=== PATIENT | male | born 1955 | race Caucasian/White ===

== ENCOUNTER → 2016-03-10 | Outpatient (CLI) | payer BC ==
[~2016-03-10] MED LIST: ANT25 PO; ATV5 SL; GADAVIST IV PRN
--- NOTE | 2016-03-10 16:08 | DIAGNOSTIC IMAGING REPORT ---
MRI OF THE BRAIN WITHOUT AND WITH IV CONTRAST CLINICAL HISTORY: Sudden onset right-sided hearing loss. Dizziness. Swishing sensation. COMPARISON STUDY: Head CT dated 08/16/2008 TECHNIQUE: MRI of the brain was performed from the vertex to the skull base utilizing various T1 and T2 weighted sequences. Following the IV administration of 8 mL of Gadavist contrast, additional enhanced images were obtained. The patient was imaged under 0.7 Esther open MRI scanner. FINDINGS: Sagittal T1, axial diffusion, proton density and T2 weighted axial, coronal FLAIR, and pre and post axial T1-weighted images were acquired. These were supplemented with post gadolinium coronal T1 weighted images. No intra or extra-axial mass lesions are visualized. Axial diffusion-weighted images reveal no evidence of acute or subacute infarction. There is no evidence of ventricular dilatation. Proton density T2-weighted and FLAIR images reveal no significant intraparenchymal signal abnormalities. There are no abnormal flow voids. There is no evidence of pathologic enhancement. There is a right maxillary sinus retention cyst. There is very subtle increased T1 signal within the right otic labyrinth. This raises the possibility of hemorrhage, although the appearance is nonspecific. IMPRESSION: 1. Subtle increased T1 signal within the right otic labyrinth. This finding although nonspecific raise the possibility of hemorrhage. 2. Right maxillary sinus retention cyst 3. Otherwise unremarkable MRI the brain. No evidence of intracranial mass. No evidence of acute or subacute infarction. Electronically signed by: Nehemiah Metzger M.D. 03/10/2016 4:07 PM Dictated Date/Time: 03/10/2016 3:58 PM
== END | disposition home or self-care (01) ==
LOC: C.OPENMRI 14:23
PROVIDERS: ATTEND Family Medicine
DX: H93.A1 Pulsatile tinnitus, right ear (principal); H11.009 Unspecified pterygium of unspecified eye; H91.21 Sudden idiopathic hearing loss, right ear; J34.1 Cyst and mucocele of nose and nasal sinus

== ENCOUNTER → 2016-03-20 | Outpatient (CLI) | payer BC ==
[~2016-03-20] MED LIST changes: -GADAVIST IV PRN
[2016-03-20 13:24] LABS: HEMATOCRIT 43.7 % (42-52); MEAN CELL VOLUME 91.4 fL (80-100); MEAN CORPUSCULAR HEMOGLOBIN 32.4 pg (25-34); MEAN CORPUSCULAR HGB CONC 35.5 g/dl (32-36); MEAN PLATELET VOLUME 10.2 fL (7.4-10.4); PLATELET COUNT 236 K/uL (130-400); RED BLOOD COUNT 4.78 M/uL (4.7-6.1); WHITE BLOOD COUNT 6.35 K/uL (4.8-10.8)
[2016-03-20 13:44] LABS: BASO % 0.6 %; BASO ABS # 0.04 K/uL (0-0.2); COMPLETE YES; EOS % 1.3 %; LYMPH % 33.4 %; LYMPH ABS # 2.12 K/uL (1.2-3.4); MONO % 11.5 %; NEUT % 47.2 %
[2016-03-20 18:20] LABS: LYME DISEASE AB IGG NEG (NEG); LYME DISEASE AB IGM NEG (NEG)
[2016-03-26 06:50] LABS: ANA TITER 1:40 TITER (<1:40)
== END | disposition home or self-care (01) ==
LOC: C.LABBC 10:53
PROVIDERS: ATTEND Surgery
DX: H91.21 Sudden idiopathic hearing loss, right ear (principal)

== ENCOUNTER 2022-01-21 22:04 | Observation (INO) ==
--- NOTE | 2022-01-21 22:19 | Emergency Department Note ---
History of Present Illness General Chief complaint: Syncope Stated complaint: Syncope, hit head Time Seen by Provider: 01/21/22 22:09 History of Present Illness This 66-year-old presents to the ER complaining of syncope Location: Generalized Quality: Collapsed Severity: Moderate Duration: Tonight Timing: Tonight Context: Patient passed out and was brought in Modifying factors: better with rest; worse with activity Patient states he was downstairs grinding meat for dinner and then went upstairs to wash his hands in order to grasp with seafood for his and collapsed at the sink. No prodromal symptoms. He has had some congestion and cough for the past few days. He drinks 3 alcoholic beverages a day and did this tonight. Patient did hit his head. Patient states he feels fine and has no current medical complaints. He states he is healthy with no active medical problems. Patient denies chest pain, dyspnea, headache, neck pain, back pain, numbness, tingling, localized weakness. Home Medications Medication Instructions Recorded Confirmed Type phenylephrine 5 2 cap PO DIRECTED PRN Cold 01/21/22 01/21/22 History mg-dextromethorphan 10 Symptoms mg-acetaminophen 325 mg capsule ([place] DayQuil Cold and Flu Relief) aspirin 81 mg tablet,delayed 81 mg PO QAM #30 tabs 01/22/22 Rx release dexamethasone 6 mg tablet 6 mg PO DAILY #10 tabs 01/22/22 Rx folic acid 1 mg tablet 1 mg PO QAM #30 tabs 01/22/22 Rx thiamine HCl (vitamin B1) 100 mg 100 mg PO QAM #30 tabs 01/22/22 Rx tablet Allergies Allergy/AdvReac Type Severity Reaction Status Date / Time shellfish derived Allergy Severe SEVERE Verified 01/21/22 22:44 VOMITING Past Med/Surg History Medical History No acute medical problems Surgical History No pertinent past surgical history Social History Smoking Status: Never smoker Tobacco Type: Smokeless Tobacco (Dip or Chew) Second Hand Exposure: No; Hx Alcohol Use: Yes Alcohol type: beer Hx Substance Use: No Preferred Language: Spanish Communication Ability: Effective Improvement Spec Required: No Beliefs That Will Affect Care: None Current Living Situation: Spouse Feels Safe at Home: Yes Assistive Devices: Hearing Aid - Right Review of Systems A total of 10 systems reviewed and were otherwise negative Physical Exam Vital Signs Vital Signs - 24 hr 01/21/22 22:11 01/21/22 22:18 01/21/22 22:18 Temperature 36.9 C Temperature Source Temporal Artery Scan Pulse Rate - Lying Pulse Rate - Sitting Pulse Rate - Standing Pulse Rate 53 L Pulse Rate from SpO2 Sensor Respiratory Rate 18 Respiratory Effort / Characteristics Non-Labored Respiratory Depth Normal Blood Pressure - Lying Blood Pressure - Sitting Blood Pressure- Standing Blood Pressure 151/81 H Blood Pressure Mean 104 Pulse Oximetry 95 95 Oxygen Delivery Method Room Air Room Air Room Air Sepsis Recent Fever Within 48 Hours No Sepsis New/Unexplained Change in Mental Status No Sepsis Action Taken by Nursing No Action Required 01/21/22 22:21 01/21/22 22:41 01/21/22 23:30 Temperature Temperature Source Pulse Rate - Lying 56 L Pulse Rate - Sitting 61 Pulse Rate - Standing 64 Pulse Rate 58 L Pulse Rate from SpO2 Sensor 68 Respiratory Rate 20 Respiratory Effort / Characteristics Respiratory Depth Blood Pressure - Lying 139/73 Blood Pressure - Sitting 151/82 H Blood Pressure- Standing 147/84 H Blood Pressure 143/75 H 131/75 Blood Pressure Mean 97 93 Pulse Oximetry 95 Oxygen Delivery Method Sepsis Recent Fever Within 48 Hours Sepsis New/Unexplained Change in Mental Status Sepsis Action Taken by Nursing 01/21/22 23:30 Temperature Temperature Source Pulse Rate - Lying Pulse Rate - Sitting Pulse Rate - Standing Pulse Rate 58 L Pulse Rate from SpO2 Sensor Respiratory Rate 19 Respiratory Effort / Characteristics Respiratory Depth Blood Pressure - Lying Blood Pressure - Sitting Blood Pressure- Standing Blood Pressure Blood Pressure Mean Pulse Oximetry 96 Oxygen Delivery Method Room Air Sepsis Recent Fever Within 48 Hours Sepsis New/Unexplained Change in Mental Status Sepsis Action Taken by Nursing VITALS: Vitals are noted on the nurse's note and reviewed by myself. Vital signs reviewed. GENERAL: Pleasant gentleman answering questions appropriately and following commands, in no acute distress, nondiaphoretic, well-developed well-nourished. SKIN: The skin was without rashes, erythema, edema, or bruising. There is no tenting of the skin. Capillary reflex less than 2 seconds. HEAD: Normocephalic atraumatic. EARS: External auditory canals clear, tympanic membranes pearly dye without erythema or effusion bilaterally. EYES: Pupils equal round and reactive to light and accommodation. Conjunctivae without injection, sclerae without icterus. Extraocular movements intact. NOSE: Patent, turbinates without inflammation or discharge. No sinus tenderness. MOUTH: Mucous membranes moist. Pharynx without erythema or exudate. Uvula midline. Airway patent. Tongue does not deviate. NECK: Supple without nuchal rigidity. No lymphadenopathy. No thyromegaly. Cervical spine is nontender. No JVD. HEART: Regular rate and rhythm LUNGS: Clear to auscultation bilaterally without wheezes, rales or rhonchi. No retractions or accessory muscle use. ABDOMEN: Positive bowel sounds x 4. Normal tympanic percussion. Soft, nontender, without masses or organomegaly. Stein sign negative. No guarding or rebound tenderness. No CVA tenderness MUSCULOSKELETAL: No muscle atrophy, erythema, or edema noted. NEURO: Patient was alert and oriented to person place and time. Normal sensation to light and sharp touch. Cranial nerves II through XII grossly intact. No pronator drift. Cerebellar exam intact. No focal neurological deficits. Course Administered Medications Discontinued Medications Aspirin (Aspirin 81 Mg Ectab) 81 mg PO QAM [facility] Stop: 02/21/22 08:59 Last Admin: 01/22/22 09:29 Dose: 81 mg Documented By: CARMEN Aspirin (Aspirin 81 Mg Ectab) 81 mg PO ONE STA Stop: 01/22/22 02:32 Last Admin: 01/22/22 02:54 Dose: 81 mg Documented By: CAROL Folic Acid (Folic Acid 1 Mg Tab) 1 mg PO QAM [facility] Stop: 02/21/22 08:59 Last Admin: 01/22/22 09:28 Dose: 1 mg Documented By: CARMEN Heparin Sodium (Porcine) (Heparin Sod 5,000 Unit/0.5 Ml Vial) 5,000 units SQ Q12 [facility] Stop: 02/21/22 08:59 Last Admin: 01/22/22 09:30 Dose: Not Given Documented By: CARMEN Sodium Chloride (Nss) 500 mls @ 999 mls/hr IV .Q31M ALEJANDRA Stop: 01/21/22 23:00 Last Infusion: 01/21/22 23:11 Dose: 0 mls/hr Documented By: Admin: 01/21/22 22:41 Dose: 999 mls/hr Documented By: ESTEFANI Dexamethasone 4 mg/ Syringe 1 mls @ 1 mls/min IV ONE ONE Stop: 01/22/22 07:38 Last Admin: 01/22/22 09:28 Dose: 1 mls/min Documented By: CARMEN Pantoprazole Sodium (Pantoprazole 40 Mg Tab) 40 mg PO NOW STA Stop: 01/22/22 02:10 Last Admin: 01/22/22 02:53 Dose: 40 mg Documented By: CAROL Thiamine HCl (Thiamine Hcl 100 Mg Tab) [facility] [place] [place] Stop: 02/21/22 08:59 Last Admin: 01/22/22 09:28 Dose: 100 mg Documented By: CARMEN Medical Decision Making Medical Records Attestation: I reviewed the patient's medical records. Home Medications Current Medication List: was personally reviewed by me Laboratory Data Attestation: I reviewed the patient's lab results. Result diagrams: 01/21/22 22:00 01/21/22 22:00 Lab Results 01/21/22 01/21/22 01/21/22 Range/Units 22:00 22:00 22:00 WBC 7.70 (4.8-10.8) K/ul RBC 4.86 (4.63-6.08) M/uL Hgb 15.8 (14.0-18.0) g/dl Hct 44.5 (40.1-51.0) % MCV 91.6 (80.0-100.0) fL MCH 32.5 (25.0-34.0) pg MCHC 35.5 (32.0-36.0) g/dL RDW Std Deviation 41.5 (36.4-46.3) fL RDW Coeff of Kirill 12.4 (11.5-14.5) % Plt Count 226 (130-400) K/uL MPV 10.0 (9.4-12.4) fL Immature Gran % (Auto) 0.6 % Neut % (Auto) 61.0 % Lymph % (Auto) 27.4 % Berks % (Auto) 10.0 % Eos % (Auto) 0.6 % Baso % (Auto) 0.4 % Neut # (Auto) 4.69 (1.4-6.5) K/uL Lymph # (Auto) 2.11 (1.2-3.4) K/uL Berks # (Auto) 0.77 (0.24-0.82) K/uL Eos # (Auto) 0.05 (0-0.50) K/uL Baso # (Auto) 0.03 (0-0.2) K/uL Immature Gran # (Auto) 0.05 H (0.00-0.02) K/uL Sodium 139 (136-145) mmol/L Potassium 3.7 (3.5-5.1) mmol/L Chloride 102 (98-107) mmol/L Carbon Dioxide 27 (21-32) mmol/L Anion Gap 10 (3-11) BUN 11 (6-23) mg/dl Creatinine 1.36 (0.6-1.4) mg/dl Est Cr Clr Drug Dosing 55.7 ml/min Est GFR ( Amer) 62.4 ml/min Est GFR (Non-Af Amer) 53.8 ml/min BUN/Creatinine Ratio 8.1 L (10-20) Glucose 93 (70-99(Fasting)) mg/dl Calcium 8.9 (8.5-10.1) mg/dl Magnesium 2.0 (1.7-2.4) mg/dl Total Bilirubin 0.6 (0.2-1.0) mg/dl AST 62 H (13-39) U/L ALT 51 (7-52) U/L Alkaline Phosphatase 67 (34-104) U/L Troponin I High Sens 6.8 (0-20) pg/ml Total Protein 6.8 (6.0-8.3) gm/dl Albumin 3.8 (3.4-5.0) gm/dl Globulin 3.0 (2.5-4.0) gm/dl Albumin/Globulin Ratio 1.3 (0.9-2) TSH 3.890 (0.300-4.500) uIu/ml Urine Color Urine Appearance (Clear) Urine pH (4.5-7.5) Ur Specific Statham (1.000-1.030) Urine Protein (Negative) Urine Glucose (UA) (Negative) Urine Ketones (Negative) Urine Blood (Negative) Urine Nitrite (Negative) Urine Bilirubin (Negative) Urine Urobilinogen (Negative) Ur Leukocyte Esterase (Negative) Urine WBC (Auto) (0-5) /hpf Urine RBC (Auto) (0-4) /hpf U Hyaline Cast (Auto) (0-5) /lpf U Epithel Cells (Auto) (0-5) /lpf Urine Bacteria (Auto) (Negative) Ethyl Alcohol mg/dL (<10.0) mg/dl SARS-CoV-2 (PCR) (Negative) Influenza Type A (PCR) (Neg) Influenza Type B (PCR) (Neg) RSV (RT-PCR) (Neg) 01/21/22 01/21/22 01/21/22 Range/Units 22:20 22:55 23:40 WBC (4.8-10.8) K/ul RBC (4.63-6.08) M/uL Hgb (14.0-18.0) g/dl Hct (40.1-51.0) % MCV (80.0-100.0) fL MCH (25.0-34.0) pg MCHC (32.0-36.0) g/dL RDW Std Deviation (36.4-46.3) fL RDW Coeff of Kirill (11.5-14.5) % Plt Count (130-400) K/uL MPV (9.4-12.4) fL Immature Gran % (Auto) % Neut % (Auto) % Lymph % (Auto) % Berks % (Auto) % Eos % (Auto) % Baso % (Auto) % Neut # (Auto) (1.4-6.5) K/uL Lymph # (Auto) (1.2-3.4) K/uL Berks # (Auto) (0.24-0.82) K/uL Eos # (Auto) (0-0.50) K/uL Baso # (Auto) (0-0.2) K/uL Immature Gran # (Auto) (0.00-0.02) K/uL Sodium (136-145) mmol/L Potassium (3.5-5.1) mmol/L Chloride (98-107) mmol/L Carbon Dioxide (21-32) mmol/L Anion Gap (3-11) BUN (6-23) mg/dl Creatinine (0.6-1.4) mg/dl Est Cr Clr Drug Dosing ml/min Est GFR ( Amer) ml/min Est GFR (Non-Af Amer) ml/min BUN/Creatinine Ratio (10-20) Glucose (70-99(Fasting)) mg/dl Calcium (8.5-10.1) mg/dl Magnesium (1.7-2.4) mg/dl Total Bilirubin (0.2-1.0) mg/dl AST (13-39) U/L ALT (7-52) U/L Alkaline Phosphatase (34-104) U/L Troponin I High Sens (0-20) pg/ml Total Protein (6.0-8.3) gm/dl Albumin (3.4-5.0) gm/dl Globulin (2.5-4.0) gm/dl Albumin/Globulin Ratio (0.9-2) TSH (0.300-4.500) uIu/ml Urine Color Yellow Urine Appearance Clear (Clear) Urine pH 5.5 (4.5-7.5) Ur Specific Statham 1.006 (1.000-1.030) Urine Protein 3+ H (Negative) Urine Glucose (UA) Negative (Negative) Urine Ketones Negative (Negative) Urine Blood 1+ H (Negative) Urine Nitrite Negative (Negative) Urine Bilirubin Negative (Negative) Urine Urobilinogen Negative (Negative) Ur Leukocyte Esterase Negative (Negative) Urine WBC (Auto) 1-5 (0-5) /hpf Urine RBC (Auto) 0-4 (0-4) /hpf U Hyaline Cast (Auto) 1-5 (0-5) /lpf U Epithel Cells (Auto) 5-10 H (0-5) /lpf Urine Bacteria (Auto) Negative (Negative) Ethyl Alcohol mg/dL 96.7 H (<10.0) mg/dl SARS-CoV-2 (PCR) POSITIVE A* (Negative) Influenza Type A (PCR) Negative (Neg) Influenza Type B (PCR) Negative (Neg) RSV (RT-PCR) Negative (Neg) Imaging Data Attestation: I personally reviewed and interpreted this imaging study as follows: MDM Narrative Prior records/ancillary studies reviewed. Triage Nursing notes reviewed. Additional history obtained from family. The patient's history was concerning for syncope. Differential diagnosis: Etiologies such as vasovagal event, infection, hypoglycemia, electrolyte abnormalities, cardiac sources, intracerebral event, toxicologic, neurologic, as well as others were entertained. Physical examination: As above ER treatment provided: IV hydration with normal saline On reassessment the patient felt better. An order was placed for continuous cardiac monitoring. The monitor shows a rate of 40-100 with a sinus rhythm. Diagnostics interpretation by me: ECG: Ordered for syncope EKG: Normal sinus, normal intervals, no acute ST-T wave changes. Impression sinus bradycardia of 53 interpreted by myself I think arrhythmia is unlikely. EKG shows normal sinus rhythm with no interval abnormalities such as QT prolongation or WPW. There are no findings to suggest Brugada syndrome. Cardiac monitoring in the emergency department reveals no tachycardic or bradycardic dysrhythmia. Hypertrophic cardiomyopathy was considered but there are no clear historical elements pointing toward this. EKG is not suggestive. The QRS voltage is not extremely large and there are no suggestive Q waves. The labs revealed no worrisome leukocytosis, negative troponin. Euthyroid Imaging studies: CT C SPINE: No evidence of acute cervical spine pathology. Advanced disc degeneration at C5- 6 and C6-7. Moderate spinal canal stenosis at C5-6 with AP diameter measuring 8. 8 mm. Minimal calcified atherosclerotic disease of the carotid bifurcations. Bilateral thyroid nodules. No comparisons. Radiologist: Bisi Larry MD CT HEAD: No evidence of acute intracranial pathology. Comparison made to prior brain MRI from March 10, 2016. Retention cyst in the right maxillary sinus. Radiologist: Bisi Larry MD Chest x-ray with no acute consolidation, pneumothorax or free air per my interpretation. Consultation: A consultation was placed with the hospitalist. The case was discussed and diagnostics were reviewed. The patient was evaluated in the ER for further treatment. This appears to be consistent with syncope w/ covid. Patient had no prodromal symptoms prior to the episode. He was slightly bradycardic in the ER. He states this is not new for him. Medicine was consulted. He will be evaluated for admission. Head CT was negative for acute findings. By the evaluation outlined above emergent etiologies such as hypoglycemia, electrolyte abnormalities, intracerebral event, neurologic,as well as others were deemed relatively unlikely. The pt informed about the findings as listed above. All questions were answered and pleased with the treatment. The chart was completed utilizing [employer] recognition software. Grammatical errors, random word insertions, pronoun errors, and incomplete sentences are an occassional consequence of this system due to software whiting itations, ambient noise, and hardware issues. Any formal questions or concerns about the content, text, or information contained within the body of this dictation should be directly addressed to the physician butcher assistant for clarification. Impression & Plan Syncope, COVID-19 Discharge Plan Visit Data Chief Complaint: Syncope Stated Complaint: Syncope, hit head ED Provider: Melchor Price ED Midlevel Provider: Kayleigh Anaya Discharge Problem: Syncope, COVID-19 Patient Disposition: Admitted As Inpatient Condition: Good Discharge Instructions Interventions: ED Discharge Assessment Last Done: 01/22/22 01:33 : Syncope Qualifiers: Syncope type: unspecified Qualified Code(s): R55 - Syncope and collapse
[2022-01-21 22:26] LABS: Basophils # (auto) 0.03 K/uL (0-0.2); Basophils % (auto) 0.4 %; Eosinophils # (auto) 0.05 K/uL (0-0.50); Eosinophils % (auto) 0.6 %; Hematocrit (blood only) 44.5 % (40.1-51.0); Hemoglobin 15.8 g/dl (14.0-18.0); Immature Granulocytes # (auto) 0.05 K/uL (0.00-0.02); Immature Granulocytes % (auto) 0.6 %; Lymphocytes # (auto) 2.11 K/uL (1.2-3.4); Lymphocytes % (auto) 27.4 %; Mean Corpuscular Hemoglobin 32.5 pg (25.0-34.0); Mean Corpuscular Hgb Conc 35.5 g/dL (32.0-36.0); Mean Corpuscular Volume 91.6 fL (80.0-100.0); Monocytes # (auto) 0.77 K/uL (0.24-0.82); Neutrophils # (auto) 4.69 K/uL (1.4-6.5); Platelet Count 226 K/uL (130-400); RDW Coefficient of Variation 12.4 % (11.5-14.5); RDW Standard Deviation 41.5 fL (36.4-46.3); Red Blood Count 4.86 M/uL (4.63-6.08)
[2022-01-21] MEDS ORDERED: SODIUM CHLORIDE 0.9% 500 ML IV SCH (22:30)
[2022-01-21 22:50] LABS: Albumin Globulin Ratio 1.3 (0.9-2); Albumin Level 3.8 gm/dl (3.4-5.0); BUN Creatinine Ratio 8.1 (10-20); Bilirubin,Total 0.6 mg/dl (0.2-1.0); Calcium 8.9 mg/dl (8.5-10.1); Creatinine Clr Calc Pharmacy 55.7 ml/min; Est GFR (African American) 62.4 ml/min; Est GFR (Non-African American) 53.8 ml/min; Potassium 3.7 mmol/L (3.5-5.1); Total Protein 6.8 gm/dl (6.0-8.3)
[2022-01-21 22:52] LABS: Troponin I High Sensitivity 6.8 pg/ml (0-20)
[2022-01-21 23:09] LABS: Influenza A virus by PCR Negative (Neg); Influenza B virus by PCR Negative (Neg); RSV by PCR Negative (Neg)
[2022-01-21 23:43] LABS: SARS CoV2 RNA(COVID-19) Ceph POSITIVE (Negative)
[2022-01-22 00:02] LABS: Appearance Urine Clear (Clear); Bacteria Urine Automated Negative (Negative); Bilirubin Urine Negative (Negative); Blood Urine 1+ (Negative); Color Urine Yellow; Glucose Urine UA Negative (Negative); Ketones Urine Negative (Negative); Leukocyte Esterase Urine Negative (Negative); Nitrite Urine Negative (Negative); Protein Urine 3+ (Negative); RBC Urine Automated 0-4 /hpf (0-4); Specific Gravity Urine 1.006 (1.000-1.030); Urobilinogen Urine Negative (Negative); pH Urine 5.5 (4.5-7.5)
--- NOTE | 2022-01-22 02:01 | History & Physical Report ---
Date of Service January 22, 2022 Assessment & Plan (1) Syncope: Plan: pt presents with syncopal episode no evidence of ischemia in ED continue telemetry monitoring monitor oxygen saturation monitor serial troponin check transthoracic echo to assess EF (2) COVID-19: Plan: pt tests positive for covid19 infection in ED not hypoxic in ED - continue oxygen supplementation no need for remdesivir at this time IV decadron and close pulseoxietry monitoring (3) Elevated ETOH level: Plan: pt admits to consuming 3 etoh drins yesterday monitor for signs of etoh withdrawal will place pt on ciwa protocol CT head negative for intracranial bleed transaminase slightly elevated (4) Elevated liver transaminase level: Plan: mild elevation of transaminases likely sec to etoh use monitor trend History of Present Illness Chief Complaint: pt presents with syncopal episode Primary Care Provider: Genevieve Nogueira DO This is a 66 yr old male who presents to Ed with c/o having had a syncopal epsiode. Pt reports that he felt slightly tires with cough and nasal congestion over the past two days. pt had consumed about 3 drinks this am and then pt was grinding meat in the basement area and subsequently pt had walked over the stairs to get some seafood and while he was attempting to open a faucet pt felt dizzy and passed out. Pt was present during the episode and denies any seizure type activity . pt denies any prodromal symptoms. pt has no chest pain or sob reported . no nausea or vomitting reported . no urinary or bowel incontinence reported. There was a concern of pt hitting his head and pt was brought in to ED and a CT of head was obtained that did not reveal any intracranial bleed or masses pt was evaluted in ED and found to be positive for covid 19 infection and his ETOH level was elevated at about 95 . otherwise pts EKG was non ichchemic and cardiac enzymes not elevated in the ED Allergies Allergy/AdvReac Type Severity Reaction Status Date / Time shellfish derived Allergy Severe SEVERE Verified 01/21/22 22:44 VOMITING Home Medications Medication Instructions Recorded Confirmed Type phenylephrine 5 2 cap PO DIRECTED PRN Cold 01/21/22 01/21/22 History mg-dextromethorphan 10 Symptoms mg-acetaminophen 325 mg capsule ([place] DayQuil Cold and Flu Relief) Past Med/Surg History Medical History No acute medical problems Surgical History No pertinent past surgical history Social History Smoking Status: Never smoker Tobacco Type: Smokeless Tobacco (Dip or Chew) Second Hand Exposure: No; Do You Dip or Chew Tobacco: Yes; Tobacco Cessation Education Requested by Patient: No Hx Alcohol Use: Yes Alcohol type: beer Hx Substance Use: No Preferred Language: Turkmen Communication Ability: Effective Hatchery Worker Required: No Beliefs That Will Affect Care: None Current Living Situation: Spouse Other Information That Helps Us Care for You: No Feels Safe at Home: Yes Safety Concerns: Feels Safe At This Time Assistive Devices: Hearing Aid - Right Review of Systems Constitutional: + fatigue; no fever and no weakness Eyes: no diplopia and no loss of peripheral vision Respiratory: + cough; no pain on inspiration and no wheezing Cardiovascular: + syncope; no chest pain, no chest pain with activity and no palpitations Gastrointestinal: no nausea, no vomiting and no diarrhea/loose stools Genitourinary: no hematuria Integumentary: no rash Neurologic: + syncope; no seizure-like activity and no abnormal speech Endocrine: + fatigue; no polydipsia and no polyuria Physical Exam Constitutional: WD/WN, vitals as above Eyes: PERRL, conjunctivae normal, anicteric sclerae Neck: trachea midline, no thyromegaly Respiratory: normal respiratory effort, lungs clear to auscultation Cardiovascular: RRR, no murmur, no edema Gastrointestinal (Abdomen): normal bowel sounds, soft, nontender, no hepatosplenomegaly Musculoskeletal: no cyanosis or clubbing, extremities motor strength 5/5 Neurologic: PERRL, EOMI, accommodation nl, no face palsy, no dysarthria Results & Data Results & Data ([facility]) Vital Signs (Past 12 Hours) Vital Signs Temp Pulse Resp BP Pulse Ox O2 Del Method 01/22/22 01:00 58 L 18 130/73 95 01/22/22 00:30 62 18 126/71 94 01/22/22 00:00 58 L 17 122/72 95 01/21/22 23:30 58 L 19 96 Room Air 01/21/22 23:30 131/75 01/21/22 22:41 58 L 20 143/75 H 95 01/21/22 22:18 95 Room Air 01/21/22 22:18 Room Air 01/21/22 22:11 36.9 C 53 L 18 151/81 H 95 Room Air Code Status & VTE Plan VTE Prophylaxis Plan VTE Prophylaxis will be ordered: Yes PG Care Time/CCT Total # of Minutes Spent Total Time Spent with Patient: Total time spent is greater than 50% in coordination of care (as documented) at patient's floor/unit and/or counseling patient: Coding Level of Care Code INT OBSERVATION CARE 50M LVL 2 Diagnoses Syncope R55 Syncope type: unspecified COVID-19 U07.1 Elevated ETOH level R78.0 Elevated liver transaminase level R74.01 Time Spent (min) 45 Review of System Constitutional: + fatigue; no fever and no weakness Eyes: no diplopia and no loss of peripheral vision Respiratory: + cough; no pain on inspiration and no wheezing Cardiovascular: + syncope; no chest pain, no chest pain with activity and no palpitations Gastrointestinal: no nausea, no vomiting and no diarrhea/loose stools Genitourinary (Male): no hematuria Integumentary: no rash Neurologic: + syncope; no seizure-like activity and no abnormal speech Endocrine: + fatigue; no polydipsia and no polyuria (1) Syncope Syncope type: unspecified Qualified Code(s): R55 - Syncope and collapse
[2022-01-22] MEDS ORDERED: PANTOprazole 40 MG TAB PO STA (02:09)
[2022-01-22] MEDS ORDERED: ASPIRIN 81 MG ECTAB PO STA (02:31)
--- NOTE | 2022-01-22 06:45 | XRay Report ---
XR chest 1V portable HISTORY: 66 years-old Male cough acute cough COMPARISON: None TECHNIQUE: AP view of the chest FINDINGS: Cardiomediastinal and hilar silhouettes are within normal limits. No pneumothorax, pleural effusion, airspace consolidation or overt pulmonary edema. Degenerative changes of the shoulders and spine. IMPRESSION: No acute process. ACT 112: Negative or not required by law. The above report was generated using voice recognition software. It may contain grammatical, syntax o r spelling errors. Electronically signed by: Rd Ashley M.D. 01/22/2022 6:43 AM
--- NOTE | 2022-01-22 06:54 | CT Scan Report ---
CT head/brain wo con CLINICAL HISTORY: 66 years-old Male with syncope. Acute syncope TECHNIQUE: Multiple axial CT images of the head were obtained without contrast. A dose lowering tech nique was utilized adhering to the principles of ALARA. CT DOSE: 977.13 mGy.cm COMPARISON: 08/16/2008. FINDINGS: No acute intracranial hemorrhage, midline shift, intracranial mass, hydrocephalus, territorial ischem ia or abnormal extra-axial collection. Mild involutional changes. The calvarium is intact. Mastoid air cells are clear. Small right maxillary sinus air-fluid level. U nremarkable soft tissues. Subcentimeter calcifications are noted involving the superior aspect of the bilateral globes. IMPRESSION: No acute intracranial abnormality. ACT 112: Negative or not required by law. The above report was generated using voice recognition software. It may contain grammatical, syntax o r spelling errors. Electronically signed by: Rd Ashley M.D. 01/22/2022 6:52 AM
--- NOTE | 2022-01-22 07:11 | CT Scan Report ---
CT cervical spine wo con CLINICAL HISTORY: 66 years-old Male with fall, head injury. Acute head and neck injury status post f all COMPARISON: CT head of same day TECHNIQUE: Multiple axial CT images of the cervical spine were obtained without contrast. A dose low ering technique was utilized adhering to the principles of ALARA. FINDINGS: Multilevel degenerative changes include severe C5-C6 and C6 or C7 intervertebral disc space narrowing with spondylitic spurring and posterior disc osteophyte complex formations also noted at t hese levels. There is moderate multilevel facet arthrosis. Minimal superior endplate compression of t he T1 and T2 vertebral bodies of less than 20% without acute fracture line or retropulsion. No acute cervical spine fracture or subluxation. Multilevel neuroforaminal narrowing of the cervical spine. The cervical soft tissues appear unremarkable. Mild mucosal thickening with air-fluid level and aeros olized secretions of the right maxillary sinus. The visualized lung apices appear clear. IMPRESSION: 1. No acute cervical spine fracture or subluxation. 2. Minimal superior endplate compression of the T1 and T2 vertebral bodies bodies are technically age -indeterminate however favored to be chronic. 3. Degenerative changes of the cervical spine as above. ACT 112: Negative or not required by law. The above report was generated using voice recognition software. It may contain grammatical, syntax o r spelling errors. Electronically signed by: Rd Ashley M.D. 01/22/2022 7:09 AM
[2022-01-22] MEDS ORDERED: Ativan PO Alcohol Withdrawal--Active Protocol PO PRN (07:34)
[2022-01-22] MEDS ORDERED: LORazepam 1 MG TAB PO PRN (07:34)
[2022-01-22] MEDS ORDERED: dexAMETHasone 4 MG in SYRINGE 0 ML IV ONE (07:37)
--- NOTE | 2022-01-22 08:24 | XCELERA ---
[id number]
[2022-01-22] MEDS ORDERED: ASPIRIN 81 MG ECTAB PO SCH (09:00)
[2022-01-22] MEDS ORDERED: THIAMINE HCL 100 MG TAB PO SCH (09:00)
[2022-01-22] MEDS ORDERED: HEPARIN SOD 5,000 UNIT/0.5 ML VIAL SQ SCH (09:00)
[2022-01-22] MEDS ORDERED: FOLIC ACID 1 MG TAB PO SCH (09:00)
--- NOTE | 2022-01-22 09:16 | Electrocardiogram Report ---
Test Reason : Blood Pressure : / mmHG Vent. Rate : 053 BPM Atrial Rate : 053 BPM P-R Int : 166 ms QRS Dur : 102 ms QT Int : 436 ms P-R-T Axes : -13 -29 049 degrees QTc Int : 409 ms Poor data quality, interpretation may be adversely affected Sinus bradycardia Otherwise normal ECG When compared with ECG of 16-AUG-2008 07:11, T wave inversion no longer evident in Inferior leads Confirmed by Jack Albright ([id number]) on 01/22/2022 9:16:14 AM Referred By: REFERRED SELF Confirmed By:Jack Albright
--- NOTE | 2022-01-22 12:10 | Cardiology Consultation ---
Date of Consultation January 22, 2022 Assessment & Plan (1) Vasovagal syncope: (2) COVID-19: (3) Elevated ETOH level: Plan Generally healthy 66-year-old man with single episode of syncope without preceding or subsequent symptoms. Context strongly suggestive of vasovagal syncope given mild case of COVID, alcohol intake, unpleasant stimuli (cold hands & working with deer viscera), tunnel vision prodrome, and no evidence of trauma. ECG and cardiac enzymes not suggestive of ischemia. Telemetry without any dysrhythmias. Trivial aortic insufficiency but normal aortic diameter and no chest pain, dissection unlikely. Explained pathophysiology of vasovagal syncope, he will monitor for any further events and take syncope avoiding measures (sit or lie down) if they recur. If he does have recurrent syncope without vasovagal contacts, would consider further work-up (including loop recorder). No further cardiac work-up necessary at this time, okay for discharge from my standpoint. No cardiology follow-up necessary in the absence of further symptoms. History of Present Illness Reason for Consultation: Syncope Requesting Physician: Dain Mccoy Attending Physician: Dain Mccoy History of Present Illness 66-year-old generally healthy man with no cardiac history who was admitted for a first episode of unexplained syncope yesterday. At baseline, he is physically active and able to push a lawnmower without dyspnea or chest discomfort, no cardiopulmonary complaints whatsoever. 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 While standing near the sink he noted onset of tunnel vision and dropped to the floor and lost consciousness. This was witnessed by his , who felt that he was out for "about a minute" and awoke him by pushing on his chest attempting CPR. Upon awakening, he had complete recollection of events and noted no confusion, incontinence, chest discomfort, or any other complaints. He denied any trauma. He has felt well since the event and denies any cardiopulmonary or somatic complaints. He notes that he had a full dinner and 3 beers, which is not unusual for him. He has had congestive symptoms with rhinorrhea and a minimal cough for a couple days, he did test positive for COVID upon admission. Telemetry overnight showed sinus rhythm in the 60 bpm range with occasional PACs. At the time of my evaluation this morning, the patient had no somatic complaints. Allergies Allergy/AdvReac Type Severity Reaction Status Date / Time shellfish derived Allergy Severe SEVERE Verified 01/21/22 22:44 VOMITING Home Medications Medication Instructions Recorded Confirmed Type phenylephrine 5 2 cap PO DIRECTED PRN Cold 01/21/22 01/21/22 History mg-dextromethorphan 10 Symptoms mg-acetaminophen 325 mg capsule (Vicks DayQuil Cold and Flu Relief) Patient History Medical History No acute medical problems Surgical History No pertinent past surgical history Social History Smoking Status: Never smoker Tobacco Type: Smokeless Tobacco (Dip or Chew) Second Hand Exposure: No; Do You Dip or Chew Tobacco: Yes; Tobacco Cessation Education Requested by Patient: No Hx Alcohol Use: Yes Alcohol type: beer Hx Substance Use: No Preferred Language: Bulgarian Communication Ability: Effective Orthodontist Required: No Beliefs That Will Affect Care: None Current Living Situation: Spouse Other Information That Helps Us Care for You: No Feels Safe at Home: Yes Safety Concerns: Feels Safe At This Time Assistive Devices: Hearing Aid - Right Physical Exam Physical Exam: Adult white male who appears comfortable. Afebrile. Mildly hypertensive (157/84 mmHg). Pulse 72 bpm and regular with occasional ectopy. Skin: No evidence of trauma. No ecchymoses or generalized lesions. HEENT: unremarkable. Neck: no JVD or carotid bruits. Lungs: clear. Cardiac: regular rhythm, no murmur or gallop. Abdomen: benign. Extremities: no edema, pulses intact. Neurologic: normal affect and conversation, nonfocal. Results & Data ([facility]) Laboratory Results High-sensitivity troponin negative x2. Normal electrolytes, BUN 11, creatinine 1.36. Normal CBC. Diagnostic Findings ECG showed sinus bradycardia 53 bpm and was unremarkable. Compared with study, T wave inversion no longer noted in inferior leads. Echocardiogram showed EF 60 to 65% with borderline LVH and grade 1 diastolic dysfunction, normal RV size and systolic function, mild aortic regurgitation, IVC not visualized, may represent reduced central venous pressure. No prior study for comparison. Chest x-ray and head CT benign. PG Care Time/CCT Total # of Minutes Spent Total Time Spent with Patient: Total time spent is greater than 50% in coordination of care (as documented) at patient's floor/unit and/or counseling patient: Coding Level of Care Code 13226 Inpt Consult Level 4 Diagnoses Vasovagal syncope R55 COVID-19 U07.1 Elevated ETOH level R78.0
--- NOTE | 2022-01-25 06:36 | Emergency Department Note ---
ED Visit Note I was consulted by the Advanced Practice Provider. I performed a substantive portion of the visit. This includes aspects of the HPI, MDM, diagnostic interpretations, and disposition/plan. Patient did have an episode of syncope, positive for COVID. The patient was admitted to the medicine service. . : Syncope Qualifiers: Syncope type: unspecified Qualified Code(s): R55 - Syncope and collapse
== END 2022-01-22 19:25 | disposition home or self-care (01) ==
LOC: ED 22:04 → 2S 22:04 → SUATTDRO 01-22 01:02 → 2S 01-22 01:33